=== PATIENT | female | born 2000 | race American Indian/Alaskan Native ===

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

== ENCOUNTER 2022-02-03 11:36 | Outpatient (CLI) | payer MEDICAID ==
[2022-02-03] MEDS ORDERED: LACTATED RINGERS 500 ML IV ONE (12:36)
[2022-02-03 12:41] VITALS: BP 96/59
[2022-02-03] MEDS ORDERED: LACTATED RINGERS 1,000 ML IV SCH (12:45)
[2022-02-03 12:58] LABS: Bilirubin,Urine NEG (Negative); Blood,Urine NEG (Negative); Color,Urine Yellow (Yellow); Protein,Urine <15 mg/dL mg/dL (Negative)
[2022-02-03 12:59] LABS: Mucus,Urine FEW /HPF; RBC,Urine < 1.0 /HPF (0.0-6.0)
--- NOTE | 2022-02-03 14:21 | Ultrasound Report ---
ULTRASOUND BIOPHYSICAL PROFILE INDICATION: labor. COMPARISON: None available. FINDINGS: heart rate is 116 beats per minute. breathing movement = 2 Gross body movement = 2 tone = 2 Qualitative amniotic fluid volume = 2 IMPRESSION: biophysical profile = 03/28 Signer Name: Beltran Akbar Jr, MD Signed: 02/03/2022 2:16 PM Workstation Name: [id number]
--- NOTE | 2022-02-03 14:27 | Ultrasound Report ---
US renal BILAT INDICATION / CLINICAL INFORMATION: Left abdominal pain. COMPARISON: None available. FINDINGS: RIGHT KIDNEY: Size = 10.1 cm. - Echogenicity: Normal. - Cortical thickness: Normal. - Hydronephrosis: None. - Cyst or mass: None. - Stones: None seen.. LEFT KIDNEY: Size = 10.7 cm. - Echogenicity: Normal. - Cortical thickness: Normal. - Hydronephrosis: None. - Cyst or mass: None. - Stones: None seen.. URINARY BLADDER: No significant abnormality. FREE FLUID: None. ADDITIONAL FINDINGS: None. IMPRESSION 1. No significant sonographic abnormality of the kidneys. Signer Name: Socrates Bueno MD Signed: 02/03/2022 2:22 PM Workstation Name: [id number]
--- NOTE | 2022-02-03 15:58 | Ultrasound Report ---
Limited OB Ultrasound HISTORY: labor. TECHNIQUE: Grayscale and color imaging performed. COMPARISON: Biophysical profile from today FINDINGS: Single viable intrauterine gestation with cephalic presentation. SHARMILA is 21.4 cm. Heart rate is 125 bpm. Anterior placenta, grade 2. IMPRESSION: Single viable intrauterine gestation as above Signer Name: Flakito Reddy MD Signed: 02/03/2022 3:53 PM Workstation Name: [email or web address]
== END 2022-02-03 12:30 | disposition left against medical advice (07) ==
LOC: TRG 11:36 → APU 11:37 → TRG 12:30
PROVIDERS: ATTEND Obstetrics & Gynecology
DX: O26.893 Other specified pregnancy related conditions, third trimester (principal); R10.9 Unspecified abdominal pain; Z3A.35 35 weeks gestation of pregnancy
CPT/HCPCS: 76770; 76815; 76819; 81001

== ENCOUNTER 2022-03-07 11:14 | Outpatient (CLI) | payer MEDICAID ==
[2022-03-07 11:53] VITALS: BP 117/61
--- NOTE | 2022-03-07 13:14 | Ultrasound Report ---
ULTRASOUND OBSTETRIC LIMITED ULTRASOUND BIOPHYSICAL PROFILE INDICATION / CLINICAL INFORMATION: Non-Reactive NST. Clinical Gestational Age (GA) in weeks, days: 40, 0 TECHNIQUE: Transabdominal. COMPARISON: 02/03/2022 FINDINGS: BREATHING MOVEMENT = 2 GROSS BODY MOVEMENT = 2 TONE = 2 QUALITATIVE AMNIOTIC FLUID VOLUME = 2 TOTAL BIOPHYSICAL SCORE = 8/8 HEART RATE (beats per minute): 128 AMNIOTIC FLUID INDEX (cm) = 13.4 (normal = 7-24 cm) PRESENTATION: Cephalic. ADDITIONAL FINDINGS: None. IMPRESSION: 1. Biophysical Score = 8/8 Signer Name: Luigi Sagastume DO Signed: 03/07/2022 1:10 PM Workstation Name: [id number]
== END 2022-03-07 13:40 | disposition home or self-care (01) ==
LOC: TRG 11:14 → APU 11:15 → TRG 13:40
PROVIDERS: ATTEND Obstetrics & Gynecology
DX: Z34.93 Encounter for supervision of normal pregnancy, unspecified, third trimester (principal); Z3A.40 40 weeks gestation of pregnancy
CPT/HCPCS: 59025; 76815; 76819

== ENCOUNTER 2022-03-14 15:06 | Inpatient (IN) | payer MEDICAID ==
--- NOTE | 2022-03-14 19:24 | Ultrasound Report ---
US OB BPP wo non-stress, US OB limited INDICATION: well being. TECHNIQUE: Transabdominal. COMPARISON: None available. FINDINGS: There is a single intrauterine . Heart Rate: 125 beats per minute. Position: cephalic. Amniotic Fluid Volume: normal Amniotic Fluid Index (SHARMILA) in cm (if calculated): 12.7. Placenta: Anterior. Biophysical Profile: breathing movements: 2 movements:0 posture and tone:0 Qualitative amniotic fluid volume: 2 IMPRESSION: 1. Biophysical profile if 4 of 8. Signer Name: Socrates Bueno MD Signed: 03/14/2022 7:19 PM Workstation Name: [id number]
[2022-03-14] MEDS ORDERED: LIDOCAINE (2%) 20 MG/1 ML VIAL 20 ML MDV INFILTRATI ONE (19:58)
[2022-03-14] MEDS ORDERED: LOPERAMIDE 2 MG CAP PO PRN (19:58)
[2022-03-14] MEDS ORDERED: OXYTOCIN 10 UNIT/1 ML INJ IM PRN (19:58)
[2022-03-14] MEDS ORDERED: MINERAL OIL 30 ML ORAL LIQD PO PRN (19:58)
[2022-03-14] MEDS ORDERED: miSOPROStol 200 MCG TAB PR PRN (19:58)
[2022-03-14] MEDS ORDERED: CARBOPROST TROMETHAMINE 250 MCG/1 ML INJ IM PRN (19:58)
[2022-03-14] MEDS ORDERED: TERBUTALINE 1 MG/1 ML INJ SUB-Q PRN (19:58)
[2022-03-14] MEDS ORDERED: ePHEDrine SULFATE 50 MG/1 ML INJ IV PRN (19:58)
[2022-03-14] MEDS ORDERED: METHYLERGONOVINE MALEATE 0.2 MG/ML VIAL IM PRN (19:58)
[2022-03-14] MEDS ORDERED: OXYTOCIN DRIP 30 UNITS/500 ML BAG IV SCH ×2 (20:00)
[2022-03-14] MEDS ORDERED: LACTATED RINGERS 1,000 ML IV SCH (20:00)
[2022-03-14] MEDS ORDERED: ACETAMINOPHEN 325 MG TAB PO PRN (20:06)
[2022-03-14] MEDS ORDERED: PROMETHAZINE 25 MG TAB PO PRN (20:06)
[2022-03-14] MEDS ORDERED: BUTORPHANOL 2 MG/1 ML INJ IV PRN (20:06)
[2022-03-14] MEDS ORDERED: DINOPROSTONE 10 MG VAG SUPP VG ONE (20:06)
[2022-03-14] MEDS ORDERED: ONDANSETRON 4 MG/2 ML INJ IV PRN (20:06)
[2022-03-14] MEDS ORDERED: NALOXONE 0.4 MG/1 ML INJ IV PRN (20:06)
[2022-03-14 20:59] LABS: Hematocrit 26.1 % (30.3-42.9); Hemoglobin 8.3 gm/dl (10.1-14.3); Mean Corpuscular HGB Conc 32 % (30-34); Platelet Count 313 K/mm3 (140-440); Red Blood Count 3.95 M/mm3 (3.65-5.03); Red Cell Distribution Width 17.1 % (13.2-15.2)
--- NOTE | 2022-03-14 20:59 | History and Physical Report ---
History of Present Illness Date of examination: 03/14/22 Date of admission: 03/14/22 Chief complaint: bpp 4/8, POST DATE History of present illness: 21YO @41WKS gest, presents to L&D for possible SROM and labor contractions. BPP 4/8, SHARMILA 12.7cm. GBS neg,close spaced (01/2020). 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 Family/Genetic History: none Social history: no significant social history, single, lives with family - Obstetrical History Expected Date of Delivery: 03/07/22 Actual Gestation: 41 Week(s) 0 Day(s) : 2 Para: 1 Hx # Term Pregnancies: 1 Number of Pregnancies: 0 Spontaneous Abortions: 0 Induced : 0 Number of Living Children: 1 Medications and Allergies Allergies Allergy/AdvReac Type Severity Reaction Status Date / Time No Known Allergies Allergy Verified 02/05/20 17:22 Home Medications Medication Instructions Recorded Confirmed Last Taken Type Ferrous Sulfate [Feosol] 325 mg PO QDAY 02/03/22 02/03/22 02/03/22 History Ondansetron [Zofran Odt] 4 mg PO Q8HR 02/03/22 02/03/22 02/02/22 History Vit-Fe Fumar-FA [ 1 tab PO DAILY 02/03/22 02/03/22 02/03/22 History Vitamin] Active Meds: Active Medications Acetaminophen (Acetaminophen 325 Mg Tab) 650 mg PO Q4H PRN PRN Reason: Pain, Mild (1-3) Butorphanol Tartrate (Butorphanol 2 Mg/1 Ml Inj) 1 mg IV Q2H PRN PRN Reason: Pain, Moderate(4-6) LABOR PAIN Butorphanol Tartrate (Butorphanol 2 Mg/1 Ml Inj) 2 mg IV Q2H PRN PRN Reason: Pain , Severe (7-10) Carboprost Tromethamine (Carboprost Tromethamine 250 Mcg/1 Ml Inj) 250 mcg IM ONCE PRN PRN Reason: Uterine Bleeding Ephedrine Sulfate (Ephedrine Sulfate 50 Mg/1 Ml Inj) 10 mg IV Q2M PRN PRN Reason: Hypotension Oxytocin/Sodium Chloride (Pitocin/Ns 30 Unit/500ml) 30 units in 500 mls @ 2 mls/hr IV TITR MATT; Protocol Lactated Ringer's (Lactated Ringers) 1,000 mls @ 125 mls/hr IV DIRECT MATT Oxytocin/Sodium Chloride (Pitocin/Ns 30 Unit/500ml) 30 units in 500 mls @ 40 mls/hr IV TITR MATT; Protocol Loperamide HCl (Loperamide 2 Mg Cap) 2 mg PO ONCE PRN PRN Reason: give with Hemabate Methylergonovine Maleate (Methylergonovine Maleate 0.2 Mg/Ml Vial) 0.2 mg IM ONCE PRN PRN Reason: Uterine Bleeding Mineral Oil (Mineral Oil 30 Ml Oral Liqd) 30 ml PO QHS PRN PRN Reason: Constipation Misoprostol (Misoprostol 200 Mcg Tab) 800 mcg [place] ONCE PRN PRN Reason: Uterine Bleeding Naloxone HCl (Naloxone 0.4 Mg/1 Ml Inj) 0.1 mg IV Q2MIN PRN PRN Reason: Res Rate </= 8 or 02 SAT < 92% Ondansetron HCl (Ondansetron 4 Mg/2 Ml Inj) 4 mg IV Q8H PRN PRN Reason: Nausea And Vomiting Oxytocin (Oxytocin 10 Unit/1 Ml Inj) 10 unit IM ONCE PRN PRN Reason: Uterine Bleeding Promethazine HCl (Promethazine 25 Mg Tab) 25 mg PO Q6H PRN PRN Reason: Nausea And Vomiting Terbutaline Sulfate (Terbutaline 1 Mg/1 Ml Inj) 0.25 mg SUB-Q ONCE PRN PRN Reason: Hyperstimulation/Hypertonicity Review of Systems All systems: negative - Vital Signs Vital signs: Vital Signs Pulse BP 89 106/57 03/14/22 15:44 03/14/22 15:44 Temp Pulse Resp BP Pulse Ox 98 F 90 16 113/68 100 03/14/22 15:51 03/14/22 20:47 03/14/22 15:51 03/14/22 20:31 03/14/22 20:47 - Physical Exam Breasts: Positive: deferred Cardiovascular: Regular rate Lungs: Positive: Clear to auscultation Abdomen: Positive: normal appearance Extremities: Positive: normal Deep Tendon Reflex Grade: Normal +2 - Obstetrical FHR: category 2 Uterine Contraction Monitor Mode: External Results All other labs normal. Assessment and Plan A: 41 WKS gestation GBS neg BPP 4/8 P: IOL with cervidil ripening TOCO /EFM monitoring
[2022-03-14 21:06] LABS: Mean Corpuscular Volume 66 fl (79-97)
--- NOTE | 2022-03-14 22:06 | Event Note ---
Date: 03/14/22 (2199) Cervidil placed, Vag exam /- posterior moderate texture.
[2022-03-14] MEDS: BUTORPHANOL 2 MG/1 ML INJ IV PRN (23:00)
[2022-03-15] MEDS: BUTORPHANOL 2 MG/1 ML INJ IV PRN (01:06)
[2022-03-15] MEDS ORDERED: NALOXONE 0.4 MG/1 ML INJ IV PRN (03:26)
[2022-03-15] MEDS ORDERED: ePHEDrine SULFATE 50 MG/1 ML INJ IV PRN (03:26)
--- NOTE | 2022-03-15 03:29 | Anesthesia Consultation ---
Anesthesia Consult and Med Hx Date of service: 03/15/22 - Airway Anesthetic Teeth Evaluation: Poor ROM Head & Neck: Adequate Mental/Hyoid Distance: Adequate Mallampati Class: Class II Intubation Access Assessment: Probably Good - Pulmonary Exam CTA: Yes - Cardiac Exam Cardiac Exam: RRR - Pre-Operative Health Status ASA Pre-Surgery Classification: ASA2 Proposed Anesthetic Plan: Epidural - Pulmonary Hx Smoking: No Hx Asthma: No COPD: No Hx Pneumonia: No - Cardiovascular System Hx Hypertension: No - Central Nervous System Hx Seizures: No Hx Psychiatric Problems: No - Endocrine Hx Renal Disease: No Hx End Stage Renal Disease: No Hx Hypothyroidism: No Hx Hyperthyroidism: No - Hematic Hx Anemia: Yes Hx Sickle Cell Disease: No - Other Systems Hx Alcohol Use: No Hx Substance Use: No Hx Obesity: No
--- NOTE | 2022-03-15 03:31 | Progress Note ---
Labor Epidural - Labor Epidural Start Time: 03:09 Stop Time: 03:12 Performed by:: ALEXANDR GREENWOOD Procedure: Patient is requesting epidural for labor pain. H&P and labs reviewed. Procedure explained, questions answered, consent obtained. Patient placed in sitting position with monitors applied. Timeout performed immediately before start of procedure. Prep/drape in usual sterile fashion. Skin localized 3 mL 1% lidocaine at L[3]-L[4] interspace. 17-gauge Touhy epidural needle advanced to MULUGETA with saline at [6] cm x 1 attempt. No blood/CSF noted via epidural needle. Epidural catheter advanced to [10] cm. Negative aspiration for blood and CSF via catheter, negative response to test dose 3 ml 1.5% lidocaine w/ Epi. Sterile dressing applied followed by tape reinforcement. Patient tolerated procedure well. No immediate complications noted.
[2022-03-15] MEDS ORDERED: fentaNYL-BUPIV 2 MCG/ML-0.125% 200 MCG/100 ML BAG EPIDURAL SCH (04:00)
[2022-03-15] MEDS ORDERED: LIDOCAINE (2%) 20 MG/1 ML VIAL 20 ML MDV INFILTRATI ONE (04:41)
[2022-03-15] MEDS ORDERED: LANOLIN/ZINC/DIMETHICONE (LANSINOH) 7 GM TP PRN (05:00)
[2022-03-15] MEDS ORDERED: MAGNESIUM HYDROXIDE (MOM) ORAL LIQD UDC PO PRN (05:00)
[2022-03-15] MEDS ORDERED: diphenhydrAMINE 25 MG CAP PO PRN (05:00)
[2022-03-15] MEDS ORDERED: HYDROcodone/ACETAMINOPHEN 5-325 MG TAB PO PRN (05:00)
[2022-03-15] MEDS ORDERED: ACETAMINOPHEN 325 MG TAB PO PRN (05:00)
[2022-03-15] MEDS ORDERED: WITCH HAZEL/ GLYCERIN PAD TP PRN (05:00)
[2022-03-15] MEDS ORDERED: BENZOCAINE/MENTHOL 20/0.5% TOP SPRAY 56 GM TP PRN (05:00)
--- NOTE | 2022-03-15 05:05 | Procedure Note ---
OB Delivery Note - Delivery Date of Delivery: 03/15/22 Surgeon: MONIE GIBSON Estimated blood loss: 300cc - Vaginal Delivery presentation: vertex Delivery position: OA Intrapartum events: other(please specify) (Post-due date, BPP= 11/26) Delivery induction: cervidil Delivery augmentation: rupture of membranes Delivery monitor: external FHT, external uterine Route of delivery: Delivery placenta: spontaneous Delivery cord: 3 umbilical vessels Episiotomy: none Delivery laceration: other ((R) labia minora laceration) Delivery repair: vicryl (3-0 Vicryl) Anesthesia: local, epidural - Infant A at 1 minute: 8 at 5 minutes: 9 Gender: Female
[2022-03-15] MEDS: IBUPROFEN 800 MG TAB PO SCH ×4 (05:35→23:09)
--- NOTE | 2022-03-15 07:21 | Post Anesthesia Evaluation ---
- Post Anesthesia Evaluation Patient Participated: Yes Airway Patent: Yes Stable Respiratory Function: Yes Nausea/Vomiting: No Temp > 96.8F: Yes Pain Manageable: Yes Adequeate Hydration: Yes Anesthesia Complications: No Block Receding Appropriately: Yes Patient on Ventilator: No
[2022-03-15] MEDS: DOCUSATE SODIUM 100 MG CAP PO SCH ×2 (09:30→23:09)
[2022-03-15] MEDS ORDERED: PRENATAL VIT27-FE FUMARATE-FOLIC ACID VIT TAB PO SCH (10:00)
[2022-03-16] MEDS: IBUPROFEN 800 MG TAB PO SCH (05:51)
--- NOTE | 2022-03-16 09:51 | Progress Note ---
Assessment and Plan PPD#1 doing fair with asymptomatic anemia 1. Repeat CBC now and pt to continue iron supplements at home (for which she states she already has) 2. Routine care and discharge her home later today and follow up in office one week for cbc check All questions encouraged and answered Subjective Date of service: 03/16/22 Principal diagnosis: PPD#1 Interval history: pt has no complaints and wants to go home today. Pt denies pelvic pain, vag bleed like a period and breast and bottle feeding. Objective - Constitutional Vitals: Vital Signs - 12hr 03/15/22 03/15/22 03/16/22 22:15 23:08 00:00 Temperature 98.7 F Pulse Rate 77 Respiratory 16 Rate Blood Pressure 101/74 [Left] O2 Sat by Pulse 98 98 Oximetry [ Bilateral] 03/16/22 03/16/22 03/16/22 01:37 03:40 05:48 Temperature Pulse Rate Respiratory Rate Blood Pressure [Left] O2 Sat by Pulse 98 98 98 Oximetry [ Bilateral] 03/16/22 08:30 Temperature Pulse Rate Respiratory Rate Blood Pressure [Left] O2 Sat by Pulse 98 Oximetry [ Bilateral] General appearance: Present: no acute distress - Neck Neck: normal ROM - Respiratory Respiratory effort: normal - Breasts Breasts: deferred - Cardiovascular Rhythm: regular Extremities: No edema - Gastrointestinal General gastrointestinal: Present: soft, non-tender - Genitourinary Female genitourinary: deferred - Integumentary Integumentary: warm, dry - Neurologic Neurologic: moves all extremities - Psychiatric Psychiatric: cooperative - Labs CBC & Chem 7: 03/14/22 19:40 Medications & Allergies - Medications Allergies/Adverse Reactions: Allergies No Known Allergies Allergy (Verified 02/05/20 17:22) Home Medications: Home Medications Medication Instructions Recorded Confirmed Last Taken Type Ferrous Sulfate [Feosol] 325 mg PO QDAY 02/03/22 02/03/22 02/03/22 History Ondansetron [Zofran Odt] 4 mg PO Q8HR 02/03/22 02/03/22 02/02/22 History Vit-Fe Fumar-FA [ 1 tab PO DAILY 02/03/22 02/03/22 02/03/22 History Vitamin] Active Medications: Generic Name Dose Route Start Last Admin Trade Name Freq PRN Reason Stop Dose Admin Acetaminophen 650 mg 03/15/22 05:00 Acetaminophen 325 Mg Tab PO Q4H PRN Pain MILD(1-3)/Fever >100.5/HORVATH Hydrocodone Bitart/Acetaminophen 2 each 03/15/22 05:00 03/15/22 20:45 Hydrocodone/Acetaminophen 5-325 Mg Tab PO 2 each Q6H PRN Administration Pain, Moderate (4-6) Benzocaine/Menthol 1 spray 03/15/22 05:00 03/15/22 11:02 Benzocaine/Menthol 20/0.5% [place] 56 Gm TP 1 spray PRN PRN Administration Episiotomy Pain Diphenhydramine HCl 25 mg 03/15/22 05:00 Diphenhydramine 25 Mg Cap PO Q6H PRN Itching Docusate Sodium 100 mg 03/15/22 10:00 03/15/22 23:09 Docusate Sodium 100 Mg Cap PO 100 mg BID MATT Administration Ibuprofen 800 mg 03/15/22 05:00 03/16/22 05:51 Ibuprofen 800 Mg Tab PO 800 mg Q6HR MATT Administration Magnesium Hydroxide 30 ml 03/15/22 05:00 Magnesium Hydroxide (Mom) Oral Liqd Udc PO HS PRN Constipation Multi-Ingredient Ointment 1 applic 03/15/22 05:00 Lanolin/Zinc/Dimethicone (Lansinoh) 7 Gm TP PRN PRN Sore Nipples Multivitamins/Iron/Calcium 1 each 03/15/22 10:00 03/15/22 09:30 [id number] Fumarate-Folic Acid Vit Tab PO 1 each QDAY MATT Administration Witch Nilda/Glycerin 1 each 03/15/22 05:00 03/15/22 11:02 Witch Nilda/ Glycerin Pad TP 1 each PRN PRN Administration Hemorrhoid/cleansing/soothing
[2022-03-16 11:40] LABS: Hematocrit 26.8 % (30.3-42.9); Hemoglobin 8.4 gm/dl (10.1-14.3); Mean Corpuscular HGB Conc 31 % (30-34); Mean Corpuscular Volume 66 fl (79-97); Platelet Count 311 K/mm3 (140-440); Red Blood Count 4.04 M/mm3 (3.65-5.03); Red Cell Distribution Width 16.9 % (13.2-15.2)
[2022-03-16 13:54] VITALS: BP 100/51
--- NOTE | 2022-03-16 15:41 | Discharge Summary ---
Providers - Providers Date of Admission: 03/14/22 19:59 Attending physician: AMELIA JAMES Primary care physician: AMELIA JAMES Hospitalization Reason for admission: induction of labor (cervidil), IUP at term Delivery: Episiotomy: none Laceration: 1st degree (labial laceration) complications: none Discharge diagnosis: IUP at term delivered [place] baby: female Hospital course: Term preg at 41wks given cervidil induction and BPP 4/8; Had uncomplicated . course uneventful and pt wanted to be discharged home on day one with asymptomatic anemia and pt has iron supplements at home and agrees to take same and follow up in clinic for CBC check in 1wk and again at 6wks . Condition at discharge: Good Disposition: 01 HOME / SELF CARE / HOMELESS Plan - Provider Discharge Summary Activity: no sex for 6 weeks Diet: routine Additional instructions: [] Smoking cessation referral if applicable(refer to patient education folder for contact #) [] Refer to [facility] Booklet Call your doctor immediately for: * Fever > 100.5 * Heavy vaginal bleeding ( >1 pad per hour) * Severe persistent headache * Shortness of breath * Reddened, hot, painful area to leg or breast * Drainage or odor from incision. * Keep incision clean and dry at all times and follow doctor's instructions regarding bathing/showering - Follow up plan Follow up: AMELIA JAMES MD [Primary Care Provider] - 7 Days Forms: [facility] Discharge Summary
== END 2022-03-16 14:20 | disposition home or self-care (01) | DRG 774 ==
LOC: TRG 15:06 → APU 15:07 → LD 19:35 → OBSVTOIN 19:59 → TRG 19:59 → OB 03-15 06:30
PROVIDERS: ADMIT Obstetrics & Gynecology; ATTEND Obstetrics & Gynecology
PROC: 10E0XZZ Delivery of Products of Conception, External Approach (ICD-10-PCS; principal; 2022-03-14)
PROC: 0HQ9XZZ Repair Perineum Skin, External Approach (ICD-10-PCS; 2022-03-14)
PROC: 3E0R3BZ Introduction of Anesthetic Agent into Spinal Canal, Percutaneous Approach (ICD-10-PCS; 2022-03-14)
PROC: 00HU33Z Insertion of Infusion Device into Spinal Canal, Percutaneous Approach (ICD-10-PCS; 2022-03-14)
DX: O48.0 Post-term pregnancy (principal); O98.32 Other infections with a predominantly sexual mode of transmission complicating childbirth; Z37.0 Single live birth; Z3A.41 41 weeks gestation of pregnancy; O70.0 First degree perineal laceration during delivery; Z20.822 Contact with and (suspected) exposure to COVID-19; A60.00 Herpesviral infection of urogenital system, unspecified
CPT/HCPCS: 36415; 59200; 76815; 76819; 84112; 85027; 86850; 86900; 86901; G0378; J0595; U0003